=== PATIENT | female | born 2005 | race Caucasian/White ===

== ENCOUNTER 2024-07-14 09:06 | Emergency (ER) | payer OTHER ==
[2024-07-14] MEDS: Ketorolac 30 MG/ML SDV IVPUSH ONE (09:52)
[2024-07-14] MEDS: Magnesium Sulfat/D5W 1GM/100ML 1 GM in Premix Bag 1 BAG IV ONE (09:52)
[2024-07-14] MEDS: Sodium Chloride 0.9% 1,000 ML IV SCH (09:52)
[2024-07-14] MEDS: Ondansetron 4 MG/2 ML SDV IVPUSH ONE (10:15)
[2024-07-14] MEDS: diphenhydrAMINE 50 MG/ML SDV IVPUSH ONE (10:15)
== END 2024-07-14 11:27 | disposition home or self-care (01) ==
LOC: DL.ED 09:06
DX: G43.909 Migraine, unspecified, not intractable, without status migrainosus (principal)
CPT/HCPCS: 96361; 96365; 96375; 99282; 99283; J1200; J1885; J2405; J3475; J7030